=== PATIENT | male | born 1985 | race Caucasian/White ===

== ENCOUNTER 2023-02-21 17:10 | Emergency (ER) | payer OTHER, SELFPAY ==
[2023-02-21 17:16] VITALS: BP 124/85; PULSE 100; RESP 16; TEMP 36.8; O2SAT 96; BMI 28.6
--- NOTE | 2023-02-21 17:30 | ECG_ITS ---
[facility] Test Date: 2023-02-21 Pat Name: CURTIS PARADA Department: Room: - Gender: Male [employer]ace [employer]: : 1985 Requested By: SHAIKH JOE Order Number: [id number] Reading MD: CASEY SOSA Measurements Intervals [place] Rate: 100 P: 60 [place]: 168 QRS: 80 QRSD: 90 T: 60 QT: 326 QTc: 382 Interpretive Statements 1100 Sinus tachycardia 9110 normal ECG No previous ECG available for comparison Electronically Signed On 02-22-2023 6:42:26 EDT by CASEY SOSA
--- NOTE | 2023-02-21 17:37 | ED_ITS ---
Documented by User: Beatriz Jaqueline 02/21/23 19:16 HPI - General Adult General Chief complaint: Chest Pain Stated complaint: CHEST PAIN Time Seen by Provider: 02/21/23 17:26 Source: patient Mode of arrival: walk-in Limitations: no limitations History of Present Illness HPI narrative: The patient prefers to go by the name of Mayra. 37 year old presents to the ED for CP, SOB, cough. Reports she was driving this evening when she developed a cough. She then developed pain across her chest that radiates to her arms. She has some SOB and dizziness. Reports hx asthma. Denies fever, chills, back pain, edema. Denies sore throat, N/V/D. Rates her pain 4/10 at this time. Location: Reports chest; Denies back Radiation: Reports extremity Related Data Home Medications Medication Instructions Recorded Confirmed clonidine HCl 0.2 mg tablet 0.2 mg PO DAILY 02/21/23 02/21/23 dexmethylphenidate 25 mg mg PO 02/21/23 capsule,extended release [id number] dexmethylphenidate 30 mg 30 mg PO DAILY 02/21/23 02/21/23 capsule,extended release [id number] estradiol 2 mg tablet 2 mg PO DAILY 02/21/23 02/21/23 hydroxyzine HCl 50 mg tablet 50 mg PO BEDTIME 02/21/23 02/21/23 pregabalin 50 mg capsule 50 mg PO TID 02/21/23 02/21/23 progesterone micronized 200 mg 200 mg PO DAILY 02/21/23 02/21/23 capsule quetiapine 200 mg tablet 200 mg PO DAILY 02/21/23 02/21/23 Previous Rx's Medication Instructions Recorded albuterol sulfate 90 mcg/actuation 2 inh inhalation Q6H PRN SOB, 02/21/23 aerosol inhaler (Proventil HFA) wheezing #8.5 grams prednisone 20 mg tablet 40 mg PO DAILY 5 days #10 tabs 02/21/23 Allergies Allergy/AdvReac Type Severity Reaction Status Date / Time Penicillins Allergy Severe Hives Verified 02/21/23 17:16 Review of Systems ROS Constitutional Denies: fever or chills Ears, nose, mouth, and throat Denies: throat pain, neck pain or throat swelling Cardiovascular Reports: chest pain; Denies: palpitations, edema, swelling of feet/ankles or lightheadedness Respiratory Reports: shortness of breath and cough; Denies: wheezing or stridor Gastrointestinal Denies: abdominal pain, nausea, vomiting or diarrhea Musculoskeletal Reports: extremity pain; Denies: back pain Integumentary/Breast Denies: rash or itching Neurological Reports: dizziness; Denies: headache, numbness in extremities, weakness in extremities or vertigo Psychiatric Reports: anxiety Exam Constitutional Vital Signs, click to edit/add: Last Vital Signs Temp 98.3 F 02/21/23 17:16 Pulse 100 H 02/21/23 17:16 Resp 16 02/21/23 17:16 BP 124/85 H 02/21/23 17:16 Pulse Ox 96 02/21/23 17:16 O2 Del Method Room Air 02/21/23 17:16 Common normals: no apparent distress and oriented x3 General appearance: cooperative; not in distress Orientation/consciousness: Yes awake HENMT Common normals: normocephalic Mouth: oral and palatal mucosa normal, lip normal and tongue normal; no muffled voice Chest Common normals: palpation of chest normal Chest: symmetrical chest wall rise Respiratory Common normals: normal respiratory effort Effort & inspection: able to speak in complete sentences and symmetric chest movement Auscultation: clear to auscultation bilaterally Cardio Common normals: regular rate and regular rhythm Psych Speech: normal speech Course Vital Signs Vital signs: Vital Signs Temperature 98.3 F 02/21/23 17:16 Pulse Rate 100 H 02/21/23 17:16 Respiratory Rate 16 02/21/23 17:16 Blood Pressure 124/85 H 02/21/23 17:16 Pulse Oximetry 96 02/21/23 17:16 Oxygen Delivery Method Room Air 02/21/23 17:16 Temperature 98.3 F 02/21/23 17:16 Pulse Rate 100 H 02/21/23 17:16 Respiratory Rate 16 02/21/23 17:16 Blood Pressure 124/85 H 02/21/23 17:16 Pulse Oximetry 96 02/21/23 17:16 Oxygen Delivery Method Room Air 02/21/23 17:16 Medical Decision Making MDM Narrative Medical decision making narrative: CBC, BMP, and troponin were unremarkable. Chest x-ray was negative for acute findings. She believes her asthma has flared up due to the poor air quality. The patient appeared in no acute distress. Prescriptions were provided for Proventil and prednisone. Follow up with pcp for a recheck, further evaluation and treatment. Lab Data Lab results reviewed: Yes I reviewed the patient's lab results Labs: Lab Results 02/21/23 Range/Units 17:55 WBC 15.2 H (4.0-11.0) 10^3/uL RBC 4.65 L (4.70-6.10) 10^6/uL Hgb 13.0 L (14.0-18.0) g/dL Hct 39.1 L (42.0-54.0) % MCV 84.1 (80.0-94.0) fL MCH 28.0 (25.9-34.0) pg MCHC 33.2 (29.9-35.2) g/dL RDW 12.4 (11.0-15.0) % Plt Count 176 (150-450) 10^3/uL MPV 11.5 (9.5-13.5) fL Neut % (Auto) 87.8 H (43.0-75.0) % Lymph % (Auto) 6.0 L (20.5-60.0) % [place] % (Auto) 5.4 (1.7-12.0) % Eos % (Auto) 0.2 L (0.9-7.0) % Baso % (Auto) 0.3 (0.2-2.0) % Neut # (Auto) 13.4 H (1.4-6.5) 10^3/uL Lymph # (Auto) 0.9 L (1.2-3.8) 10^3/uL [place] # (Auto) 0.8 (0.3-0.8) 10^3/uL Eos # (Auto) 0.0 (0.0-0.7) 10^3/uL Baso # (Auto) 0.0 (0.0-0.1) 10^3/uL Abs Immat Gran (auto) 0.05 H (0.00-0.03) 10^3/uL Imm/Tot Granulo (auto) 0.3 (0.0-0.5) % Sodium 138 (136-145) mmol/L Potassium 4.1 (3.5-5.1) mmol/L Chloride 106 (98-107) mmol/L Carbon Dioxide 23.5 (21.0-32.0) mmol/L Anion Gap 12.6 BUN 10.0 (7.0-18.0) mg/dL Creatinine 0.93 (0.70-1.30) mg/dL Est GFR ( Amer) >60 (>=60) Est GFR (Non-Af Amer) >60 (>=60) BUN/Creatinine Ratio 10.8 Glucose 86 (74-106) mg/dL Calcium 8.9 (8.5-10.1) mg/dL Troponin I High Sens 4.4 (4.0-76.1) pg/mL Imaging Data Chest x-ray: Radiologist's impression: Procedure:? XR chest 1V ? EXAMINATION: XR chest 1V ? HISTORY: CP, SOB ? COMPARISON: No relevant comparison available. ? TECHNIQUE: ? FINDINGS: LUNGS: No significant pulmonary parenchymal abnormalities. VASCULATURE: No increased pulmonary vasculature. PLEURA: No pneumothorax, effusion, or pleural thickening. CARDIAC: No cardiomegaly or cardiac silhouette abnormality. MEDIASTINUM: No visible mass or adenopathy. BONES: No fracture or visible bone lesion. OTHER: Negative. ? XR/XR chest 1V IMPRESSION: ? No acute disease. ? ? Electronically authenticated by: LAIM? MARY ? Date: 02/21/2023? 18:35 ECG Data Attestation: ?I have reviewed the pertinent ECG results. (EKG was reviewed by the attending physician. It showed sinus rhythm at a rate of 99. No acute ST segment changes. NH interval 168 ms. QTc 382 ms.) Interpretation: ? ? Measurements Intervals? [place]? Rate: ? 99 ? P:? 60 NH: ? 168? QRS:? 80 QRSD: ? 90 ? T:? 60 QT: ? 326? QTc:? 382? Interpretive Statements 1100 Sinus rhythm 9110 ? normal ECG? No previous ECG available for comparison Discharge Plan Discharge Chief Complaint: Chest Pain Clinical Impression: Dyspnea, Atypical chest pain, Asthma Patient Disposition: Home, Self-Care Time of Disposition Decision: 19:01 Condition: Good Mode of Transportation: Private Vehicle Prescriptions / Home Meds: New albuterol sulfate [Proventil HFA] 90 mcg/actuation HFA aerosol inhaler 2 inh inhalation Q6H PRN (Reason: SOB, wheezing) Qty: 8.5 0RF prednisone 20 mg tablet 40 mg PO DAILY 5 Days Qty: 10 0RF No Action clonidine HCl 0.2 mg tablet 0.2 mg PO DAILY dexmethylphenidate 25 mg capsule,ER biphasic 50-50 PO dexmethylphenidate 30 mg capsule,ER biphasic 50-50 30 mg PO DAILY hydroxyzine HCl 50 mg tablet 50 mg PO BEDTIME pregabalin 50 mg capsule 50 mg PO TID quetiapine 200 mg tablet 200 mg PO DAILY progesterone micronized 200 mg capsule 200 mg PO DAILY estradiol 2 mg tablet 2 mg PO DAILY Instructions: Chest Pain (ED), Asthma (ED), How to Use a Metered-Dose Inhaler (ED) Stand Alone Forms: Portal Instructions Referrals: Shaikh Denton MD [Primary Care Provider] - 1 week Discharge Date/Time: 02/21/23 19:21 Documented by User: Lexa Boles MD 02/21/23 19:52 HPI - General Adult General Chief complaint: Chest Pain Stated complaint: CHEST PAIN Time Seen by Provider: 02/21/23 17:26 Related Data Home Medications Medication Instructions Recorded Confirmed clonidine HCl 0.2 mg tablet 0.2 mg PO DAILY 02/21/23 02/21/23 dexmethylphenidate 25 mg mg PO 02/21/23 capsule,extended release [id number] dexmethylphenidate 30 mg 30 mg PO DAILY 02/21/23 02/21/23 capsule,extended release [id number] estradiol 2 mg tablet 2 mg PO DAILY 02/21/23 02/21/23 hydroxyzine HCl 50 mg tablet 50 mg PO BEDTIME 02/21/23 02/21/23 pregabalin 50 mg capsule 50 mg PO TID 02/21/23 02/21/23 progesterone micronized 200 mg 200 mg PO DAILY 02/21/23 02/21/23 capsule quetiapine 200 mg tablet 200 mg PO DAILY 02/21/23 02/21/23 Previous Rx's Medication Instructions Recorded albuterol sulfate 90 mcg/actuation 2 inh inhalation Q6H PRN SOB, 02/21/23 aerosol inhaler (Proventil HFA) wheezing #8.5 grams prednisone 20 mg tablet 40 mg PO DAILY 5 days #10 tabs 02/21/23 Allergies Allergy/AdvReac Type Severity Reaction Status Date / Time Penicillins Allergy Severe Hives Verified 02/21/23 17:16 Exam Constitutional Vital Signs, click to edit/add: Last Vital Signs Temp 98.3 F 02/21/23 17:16 Pulse 100 H 02/21/23 17:16 Resp 16 02/21/23 17:16 BP 124/85 H 02/21/23 17:16 Pulse Ox 96 02/21/23 17:16 O2 Del Method Room Air 02/21/23 17:16 Course Vital Signs Vital signs: Vital Signs Temperature 98.3 F 02/21/23 17:16 Pulse Rate 100 H 02/21/23 17:16 Respiratory Rate 16 02/21/23 17:16 Blood Pressure 124/85 H 02/21/23 17:16 Pulse Oximetry 96 02/21/23 17:16 Oxygen Delivery Method Room Air 02/21/23 17:16 Temperature 98.3 F 02/21/23 17:16 Pulse Rate 100 H 02/21/23 17:16 Respiratory Rate 16 02/21/23 17:16 Blood Pressure 124/85 H 02/21/23 17:16 Pulse Oximetry 96 02/21/23 17:16 Oxygen Delivery Method Room Air 02/21/23 17:16 Medical Decision Making MDM Narrative Medical decision making narrative: CBC, BMP, and troponin were unremarkable. Chest x-ray was negative for acute findings. She believes her asthma has flared up due to the poor air quality. The patient appeared in no acute distress. Prescriptions were provided for Proventil and prednisone. Follow up with pcp for a recheck, further evaluation and treatment. I, Dr Boles, have reviewed the above progress note and course of action in the ER; agree with the above. I have personally seen and evaluated this patient, gone over history and physical, and discussed disposition and treatment plan with the patient. Lab Data Labs: Lab Results 02/21/23 Range/Units 17:55 WBC 15.2 H (4.0-11.0) 10^3/uL RBC 4.65 L (4.70-6.10) 10^6/uL Hgb 13.0 L (14.0-18.0) g/dL Hct 39.1 L (42.0-54.0) % MCV 84.1 (80.0-94.0) fL MCH 28.0 (25.9-34.0) pg MCHC 33.2 (29.9-35.2) g/dL RDW 12.4 (11.0-15.0) % Plt Count 176 (150-450) 10^3/uL MPV 11.5 (9.5-13.5) fL Neut % (Auto) 87.8 H (43.0-75.0) % Lymph % (Auto) 6.0 L (20.5-60.0) % [place] % (Auto) 5.4 (1.7-12.0) % Eos % (Auto) 0.2 L (0.9-7.0) % Baso % (Auto) 0.3 (0.2-2.0) % Neut # (Auto) 13.4 H (1.4-6.5) 10^3/uL Lymph # (Auto) 0.9 L (1.2-3.8) 10^3/uL [place] # (Auto) 0.8 (0.3-0.8) 10^3/uL Eos # (Auto) 0.0 (0.0-0.7) 10^3/uL Baso # (Auto) 0.0 (0.0-0.1) 10^3/uL Abs Immat Gran (auto) 0.05 H (0.00-0.03) 10^3/uL Imm/Tot Granulo (auto) 0.3 (0.0-0.5) % Sodium 138 (136-145) mmol/L Potassium 4.1 (3.5-5.1) mmol/L Chloride 106 (98-107) mmol/L Carbon Dioxide 23.5 (21.0-32.0) mmol/L Anion Gap 12.6 BUN 10.0 (7.0-18.0) mg/dL Creatinine 0.93 (0.70-1.30) mg/dL Est GFR ( Amer) >60 (>=60) Est GFR (Non-Af Amer) >60 (>=60) BUN/Creatinine Ratio 10.8 Glucose 86 (74-106) mg/dL Calcium 8.9 (8.5-10.1) mg/dL Troponin I High Sens 4.4 (4.0-76.1) pg/mL Discharge Plan Discharge Chief Complaint: Chest Pain Clinical Impression: Dyspnea, Atypical chest pain, Asthma Patient Disposition: Home, Self-Care Time of Disposition Decision: 19:01 Condition: Good Mode of Transportation: Private Vehicle Prescriptions / Home Meds: New albuterol sulfate [Proventil HFA] 90 mcg/actuation HFA aerosol inhaler 2 inh inhalation Q6H PRN (Reason: SOB, wheezing) Qty: 8.5 0RF prednisone 20 mg tablet 40 mg PO DAILY 5 Days Qty: 10 0RF No Action clonidine HCl 0.2 mg tablet 0.2 mg PO DAILY dexmethylphenidate 25 mg capsule,ER biphasic 50-50 PO dexmethylphenidate 30 mg capsule,ER biphasic 50-50 30 mg PO DAILY hydroxyzine HCl 50 mg tablet 50 mg PO BEDTIME pregabalin 50 mg capsule 50 mg PO TID quetiapine 200 mg tablet 200 mg PO DAILY progesterone micronized 200 mg capsule 200 mg PO DAILY estradiol 2 mg tablet 2 mg PO DAILY Instructions: Chest Pain (ED), Asthma (ED), How to Use a Metered-Dose Inhaler (ED) Stand Alone Forms: Portal Instructions Referrals: Shaikh Denton MD [Primary Care Provider] - 1 week Discharge Date/Time: 02/21/23 19:21
--- NOTE | 2023-02-21 18:05 | XR_ITS ---
The [address] [address] Patient Name: CURTIS PARADA MRN: [id number] date: 1985 Sex: M Assigned Patient Location: ER Current Patient Location: ED.MAIN Accession/Order Number: [id number] Exam Date: 02/21/2023 17:58 Report Date: 02/21/2023 18:35 At the request of: VARUN GUERRERO Procedure: XR chest 1V EXAMINATION: XR chest 1V HISTORY: CP, SOB COMPARISON: No relevant comparison available. TECHNIQUE: FINDINGS: LUNGS: No significant pulmonary parenchymal abnormalities. VASCULATURE: No increased pulmonary vasculature. PLEURA: No pneumothorax, effusion, or pleural thickening. CARDIAC: No cardiomegaly or cardiac silhouette abnormality. MEDIASTINUM: No visible mass or adenopathy. BONES: No fracture or visible bone lesion. OTHER: Negative. XR/XR chest 1V IMPRESSION: No acute disease. Electronically authenticated by: LIAM HERNANDEZ Date: 02/21/2023 18:35
[2023-02-21 18:10] LABS: Basophils Percent Auto 0.3 % (0.2-2.0); Eosinophils Percent Auto 0.2 % (0.9-7.0); Hematocrit 39.1 % (42.0-54.0); Immature Granulocytes Abs Auto 0.05 10^3/uL (0.00-0.03); Immature Granulocytes Pct Auto 0.3 % (0.0-0.5); Lymphocytes Absolute Auto 0.9 10^3/uL (1.2-3.8); Mean Corpuscular HGB Conc 33.2 g/dL (29.9-35.2); Mean Corpuscular Volume 84.1 fL (80.0-94.0); Mean Platelet Volume 11.5 fL (9.5-13.5); Monocytes Absolute Auto 0.8 10^3/uL (0.3-0.8); Monocytes Percent Auto 5.4 % (1.7-12.0); Neutrophils Absolute Auto 13.4 10^3/uL (1.4-6.5); Neutrophils Percent Auto 87.8 % (43.0-75.0); Platelet Count 176 10^3/uL (150-450); Red Blood Count 4.65 10^6/uL (4.70-6.10); Red Cell Distribution Width 12.4 % (11.0-15.0); White Blood Count 15.2 10^3/uL (4.0-11.0)
[2023-02-21] MEDS: METHYLPREDNISOLONE SOD SUCC PF 125 MG/2 ML VIAL IVP (18:14)
[2023-02-21 18:31] LABS: Anion Gap 12.6; BUN Creatinine Ratio 10.8; Calcium 8.9 mg/dL (8.5-10.1); Carbon Dioxide 23.5 mmol/L (21.0-32.0); Chloride 106 mmol/L (98-107); Estimated GFR (African America >60 (>=60); Estimated GFR (Non-African Ame >60 (>=60); Glucose 86 mg/dL (74-106); Potassium 4.1 mmol/L (3.5-5.1); Sodium 138 mmol/L (136-145); Troponin I High Sensitivity 4.4 pg/mL (4.0-76.1)
== END 2023-02-21 19:21 | disposition home or self-care (01) ==
PROVIDERS: Nurse Practitioner Family; Emergency Provider Emergency Medicine; PCP Internal Medicine
DX: R07.89 Other chest pain (principal); J45.909 Unspecified asthma, uncomplicated; R06.00 Dyspnea, unspecified; Z79.899 Other long term (current) drug therapy
CPT/HCPCS: 36415; 71045; 80048; 84484; 85025; 93005; 96374; 99285; J2930

== ENCOUNTER 2024-03-28 16:00 | Outpatient (OUT) | payer OTHER, SELFPAY ==
[2024-03-28 17:16] LABS: Alanine Aminotransferase 29 U/L (16-63); Albumin Globulin Ratio 1.1; Albumin Level 3.7 g/dL (3.4-5.0); Alkaline Phosphatase 63 U/L (46-116); Anion Gap 9.8; Aspartate Amino Transferase 15 U/L (15-37); BUN Creatinine Ratio 12.5; Bilirubin Total 0.5 mg/dL (0.2-1.0); Calcium 8.6 mg/dL (8.5-10.1); Carbon Dioxide 25.6 mmol/L (21.0-32.0); Chloride 102 mmol/L (98-107); Chol HDL Ratio 3.1; Cholesterol 139 mg/dL (<=200); Estimated GFR (African America >60 (>=60); Estimated GFR (Non-African Ame >60 (>=60); Globulin 3.4 g/dL; Glucose 107 mg/dL (74-106); HDL Cholesterol 45 mg/dL (40-60); LDL Cholesterol Calculated 81.4 mg/dL; Potassium 4.4 mmol/L (3.5-5.1); Sodium 133 mmol/L (136-145); Total Protein 7.1 g/dL (6.4-8.2); Triglycerides 63 mg/dL (<=150); VLDL CHOLESTEROL 12.6 mg/dL
[2024-03-28 17:18] LABS: Basophils Percent Auto 0.7 % (0.2-2.0); Eosinophils Absolute Auto 0.1 10^3/uL (0.0-0.7); Eosinophils Percent Auto 1.2 % (0.9-7.0); Hematocrit 38.1 % (42.0-54.0); Hemoglobin 12.8 g/dL (14.0-18.0); Immature Granulocytes Abs Auto 0.01 10^3/uL (0.00-0.03); Immature Granulocytes Pct Auto 0.2 % (0.0-0.5); Lymphocytes Absolute Auto 1.8 10^3/uL (1.2-3.8); Lymphocytes Percent Auto 30.8 % (20.5-60.0); Mean Corpuscular HGB Conc 33.6 g/dL (29.9-35.2); Mean Corpuscular Hemoglobin 28.5 pg (25.9-34.0); Mean Corpuscular Volume 84.9 fL (80.0-94.0); Mean Platelet Volume 11.4 fL (9.5-13.5); Monocytes Absolute Auto 0.7 10^3/uL (0.3-0.8); Monocytes Percent Auto 10.9 % (1.7-12.0); Neutrophils Absolute Auto 3.4 10^3/uL (1.4-6.5); Neutrophils Percent Auto 56.2 % (43.0-75.0); Platelet Count 196 10^3/uL (150-450); Red Blood Count 4.49 10^6/uL (4.70-6.10)
[2024-03-30 08:08] LABS: Estradiol 46.8 pg/mL (7.6-42.6); HIV Ab/p24 Ag Screen Non Reactive (Non Reactive); Testosterone 175 ng/dL (264-916)
[2024-03-30 09:07] LABS: HCV Ab Non Reactive (Non Reactive)
[2024-03-30 11:07] LABS: Hepatitis B Surf Ab Quant 79.3 mIU/mL (Immunity>10)
== END 2024-03-28 16:01 | disposition home or self-care (01) ==
LOC: LAB 16:06
PROVIDERS: PCP Internal Medicine
DX: Z79.899 Other long term (current) drug therapy (principal); Z11.59 Encounter for screening for other viral diseases
CPT/HCPCS: 36415; 80053; 80061; 82670; 84403; 85025; 86317; 86803; 87389

== ENCOUNTER 2025-02-25 15:50 | Emergency (ER) | payer OTHER, SELFPAY ==
[2025-02-25 16:01] VITALS: BP 107/73; PULSE 95; TEMP 36.7; O2SAT 97; BMI 31.2
--- NOTE | 2025-02-25 18:18 | ED.GENADUL1 ---
HPI HPI - General Adult General Chief complaint: Back Pain/Injury Stated complaint: MUSCLE SPASMS IN SHOULDER BLADE Time Seen by Provider: 02/25/25 16:33 Source: patient Mode of arrival: walk-in Limitations: no limitations History of Present Illness HPI narrative: Left-sided back pain and muscle spasms left shoulder has had similar in the past. Patient denies any trauma, injury, nausea, vomiting, chest pain, loss of sensation in the perineum denies any urinary bleeding rectal bleeding loss of sensation loss of bowel or bladder control. Symptoms worse with touch motion or change in position patient had tizanidine at home states it did give him very little relief. Symptoms mild to moderate severity. Onset (ago): week(s) Location: Reports back Radiation: Denies neck Severity: moderate Quality: Reports other (waxing and waning) Related Data Home Medications ?Medication ?Instructions ?Recorded ?Confirmed clonidine HCl 0.2 mg tablet 0.2 mg PO DAILY 02/21/23 02/21/23 dexmethylphenidate 25 mg mg PO 02/21/23 capsule,extended release -38 dexmethylphenidate 30 mg 30 mg PO DAILY 02/21/23 02/21/23 capsule,extended release [id number] estradiol 2 mg tablet 2 mg PO DAILY 02/21/23 02/21/23 hydroxyzine HCl 50 mg tablet 50 mg PO BEDTIME 02/21/23 02/21/23 pregabalin 50 mg capsule 50 mg PO TID 02/21/23 02/21/23 progesterone micronized 200 mg 200 mg PO DAILY 02/21/23 02/21/23 capsule quetiapine 200 mg tablet 200 mg PO DAILY 02/21/23 02/21/23 Previous Rx's ?Medication ?Instructions ?Recorded albuterol sulfate 90 mcg/actuation 2 inh inhalation Q6H PRN SOB, 02/21/23 aerosol inhaler (Proventil HFA) wheezing #8.5 grams prednisone 20 mg tablet 40 mg (2 x 20 mg) PO DAILY 5 days 02/21/23 #10 tabs methocarbamol 500 mg tablet 500 mg PO Q8H #14 tabs 02/25/25 methylprednisolone 4 mg tablets in 4 mg PO DAILY #1 ea 02/25/25 a dose pack (Medrol (Albert)) Allergies Allergy/AdvReac Type Severity Reaction Status Date / Time Penicillins Allergy Severe Hives Verified 02/25/25 16:05 Opioid HPI Opioid Management Most Recent Opioid Data: Last Pain Scale 8 Today, 18:25 PFSH PFSH Social History Little interest or pleasure in doing things: not at all Feeling down, depressed, or hopeless: not at all Exam Constitutional Vital Signs, click to edit/add: Last Vital Signs Temp 98.0 F 02/25/25 16:01 Pulse 95 H 02/25/25 16:01 Resp 18 02/25/25 16:01 BP 107/73 02/25/25 16:01 Pulse Ox 97 02/25/25 16:01 O2 Del Method Room Air 02/25/25 16:01 Course Vital Signs Vital signs: Vital Signs Temperature 98.0 F 02/25/25 16:01 Pulse Rate 95 H 02/25/25 16:01 Respiratory Rate 18 02/25/25 16:01 Blood Pressure 107/73 02/25/25 16:01 Pulse Oximetry 97 02/25/25 16:01 Oxygen Delivery Method Room Air 02/25/25 16:01 Temperature 98.0 F 02/25/25 16:01 Pulse Rate 95 H 02/25/25 16:01 Respiratory Rate 18 02/25/25 16:01 Blood Pressure 107/73 02/25/25 16:01 Pulse Oximetry 97 02/25/25 16:01 Oxygen Delivery Method Room Air 02/25/25 16:01 Discharge Plan Discharge Chief Complaint: Back Pain/Injury Clinical Impression: Thoracic back pain, Muscle spasm Patient Disposition: Home, Self-Care Time of Disposition Decision: 18:59 Condition: Good Prescriptions / Home Meds: New methylprednisolone [Medrol (Albert)] 4 mg tablets,dose pack 4 mg PO DAILY Qty: 1 0RF methocarbamol 500 mg tablet 500 mg PO Q8H Qty: 14 0RF No Action clonidine HCl 0.2 mg tablet 0.2 mg PO DAILY dexmethylphenidate 25 mg capsule,ER biphasic 50-50 PO dexmethylphenidate 30 mg capsule,ER biphasic 50-50 30 mg PO DAILY hydroxyzine HCl 50 mg tablet 50 mg PO BEDTIME pregabalin 50 mg capsule 50 mg PO TID quetiapine 200 mg tablet 200 mg PO DAILY progesterone micronized 200 mg capsule 200 mg PO DAILY estradiol 2 mg tablet 2 mg PO DAILY albuterol sulfate [Proventil HFA] 90 mcg/actuation HFA aerosol inhaler 2 inh inhalation Q6H PRN (Reason: SOB, wheezing) Qty: 8.5 0RF prednisone 20 mg tablet 40 mg PO DAILY 5 Days Qty: 10 0RF Print Language: Kyr[place]z Instructions: Back Pain (ED) Additional Instructions: Continue any prednisone or tizanidine she currently taking place with new medications.. Do not drive or operate equipment while taking medication occluding Robaxin may cause drowsiness. Referrals: Shaikh Denton MD [Physician, Internal Medicine] - 1 week Discharge Date/Time: 02/25/25 19:15
[2025-02-25] MEDS: METHOCARBAMOL 500 MG TABLET PO (18:33)
[2025-02-25] MEDS: METHYLPREDNISOLONE SOD SUCC PF 125 MG/2 ML VIAL IM (18:33)
--- NOTE | 2025-02-25 18:51 | ED.GENADUL1 ---
HPI HPI - General Adult General Chief complaint: Back Pain/Injury Stated complaint: MUSCLE SPASMS IN SHOULDER BLADE Time Seen by Provider: 02/25/25 16:33 Source: patient Mode of arrival: walk-in Limitations: no limitations History of Present Illness HPI narrative: History of neck pain left upper indicates worse with lifting or moving left arm. He does have a history of muscle spasms. Denies any loss of bowel or bladder control, perineal anesthesia, cough, fever, chills, chest pain, [place] pain. Symptoms mild to moderate severity worse with touch or motion. Location: Reports back Quality: Reports other (waxing and waning) Related Data Home Medications ?Medication ?Instructions ?Recorded ?Confirmed clonidine HCl 0.2 mg tablet 0.2 mg PO DAILY 02/21/23 02/21/23 dexmethylphenidate 25 mg mg PO 02/21/23 capsule,extended release [id number] dexmethylphenidate 30 mg 30 mg PO DAILY 02/21/23 02/21/23 capsule,extended release [id number] estradiol 2 mg tablet 2 mg PO DAILY 02/21/23 02/21/23 hydroxyzine HCl 50 mg tablet 50 mg PO BEDTIME 02/21/23 02/21/23 pregabalin 50 mg capsule 50 mg PO TID 02/21/23 02/21/23 progesterone micronized 200 mg 200 mg PO DAILY 02/21/23 02/21/23 capsule quetiapine 200 mg tablet 200 mg PO DAILY 02/21/23 02/21/23 Previous Rx's ?Medication ?Instructions ?Recorded albuterol sulfate 90 mcg/actuation 2 inh inhalation Q6H PRN SOB, 02/21/23 aerosol inhaler (Proventil HFA) wheezing #8.5 grams prednisone 20 mg tablet 40 mg (2 x 20 mg) PO DAILY 5 days 02/21/23 #10 tabs methocarbamol 500 mg tablet 500 mg PO Q8H #14 tabs 02/25/25 methylprednisolone 4 mg tablets in 4 mg PO DAILY #1 ea 02/25/25 a dose pack (Medrol (Albert)) Allergies Allergy/AdvReac Type Severity Reaction Status Date / Time Penicillins Allergy Severe Hives Verified 02/25/25 16:05 Opioid HPI Opioid Management Most Recent Opioid Data: Last Pain Scale 8 Today, 18:25 Review of Systems ROS Status of ROS 10 or more systems reviewed and unremarkable except as noted in history and below Constitutional Denies: fever or chills Cardiovascular Denies: chest pain Respiratory Denies: shortness of breath or cough Musculoskeletal Reports: back pain; Denies: muscle weakness PFSH PFSH Social History Little interest or pleasure in doing things: not at all Feeling down, depressed, or hopeless: not at all Exam Constitutional Vital Signs, click to edit/add: Last Vital Signs Temp 98.0 F 02/25/25 16:01 Pulse 95 H 02/25/25 16:01 Resp 18 02/25/25 16:01 BP 107/73 02/25/25 16:01 Pulse Ox 97 02/25/25 16:01 O2 Del Method Room Air 02/25/25 16:01 Documenting provider has reviewed patient's vital signs: yes Common normals: no apparent distress, oriented x3 and healthy appearing General appearance: cooperative HENMT Common normals: normocephalic Eye Common normals: PERRL Neck & C-Spine Common normals: supple and no meningeal signs Cervical spine: cervical ROM normal and trapezius muscle tenderness Chest Chest: no tenderness GI Common normals: Normal to inspection, nondistended, normoactive bowel sounds present Auscultation: normoactive bowel sounds Extremity Common normals: normal to inspection Neuro Common normals: oriented x3 Course Vital Signs Vital signs: Vital Signs Temperature 98.0 F 02/25/25 16:01 Pulse Rate 95 H 02/25/25 16:01 Respiratory Rate 18 02/25/25 16:01 Blood Pressure 107/73 02/25/25 16:01 Pulse Oximetry 97 02/25/25 16:01 Oxygen Delivery Method Room Air 02/25/25 16:01 Temperature 98.0 F 02/25/25 16:01 Pulse Rate 95 H 02/25/25 16:01 Respiratory Rate 18 02/25/25 16:01 Blood Pressure 107/73 02/25/25 16:01 Pulse Oximetry 97 02/25/25 16:01 Oxygen Delivery Method Room Air 02/25/25 16:01 Medical Decision Making MDM Narrative Medical decision making narrative: Patient has history of muscle spasms states is consistent with muscle spasms denies any loss of bowel or bladder control denies perineal anesthesia denies urinary bleeding rectal bleeding denies any cough hemoptysis. Patient denies any trauma or injury. X-rays not indicated Robaxin and prednisone. Will add Solu-Medrol 125 IM will add Robaxin 500. We discussed discharge home with a Medrol Dosepak and Robaxin. Patient here with plan of care after we discussed plan of care at length. Differential Diagnosis Differential Diagnosis: Spasm, musculoskeletal pain, trapezius strain. Discharge Plan Discharge Chief Complaint: Back Pain/Injury Clinical Impression: Thoracic back pain, Muscle spasm Patient Disposition: Home, Self-Care Time of Disposition Decision: 18:59 Condition: Good Prescriptions / Home Meds: New methylprednisolone [Medrol (Albert)] 4 mg tablets,dose pack 4 mg PO DAILY Qty: 1 0RF methocarbamol 500 mg tablet 500 mg PO Q8H Qty: 14 0RF No Action clonidine HCl 0.2 mg tablet 0.2 mg PO DAILY dexmethylphenidate 25 mg capsule,ER biphasic 50-50 PO dexmethylphenidate 30 mg capsule,ER biphasic 50-50 30 mg PO DAILY hydroxyzine HCl 50 mg tablet 50 mg PO BEDTIME pregabalin 50 mg capsule 50 mg PO TID quetiapine 200 mg tablet 200 mg PO DAILY progesterone micronized 200 mg capsule 200 mg PO DAILY estradiol 2 mg tablet 2 mg PO DAILY albuterol sulfate [Proventil HFA] 90 mcg/actuation HFA aerosol inhaler 2 inh inhalation Q6H PRN (Reason: SOB, wheezing) Qty: 8.5 0RF prednisone 20 mg tablet 40 mg PO DAILY 5 Days Qty: 10 0RF Print Language: Wolof Instructions: Back Pain (ED) Additional Instructions: Continue any prednisone or tizanidine she currently taking place with new medications.. Do not drive or operate equipment while taking medication occluding Robaxin may cause drowsiness. Referrals: Shaikh Denton MD [Primary Care Provider, Internal Medicine] - 1 week
== END 2025-02-25 19:15 | disposition home or self-care (01) ==
PROVIDERS: Emergency Provider Emergency Medicine
DX: R25.2 Cramp and spasm (principal); M54.6 Pain in thoracic spine
CPT/HCPCS: 96372; 99284; J2919